=== PATIENT | female | born 1975 | race Two or more races ===

== ENCOUNTER 2024-09-18 15:31 | Emergency (ER) | payer MEDICAID ==
[~2024-09-18] VITALS: Ht 177.8 cm; Wt 72.6 kg
[2024-09-18 17:04] VITALS: BP 120/74; O2SAT 99
== END 2024-09-18 17:08 | disposition home or self-care (01) ==
LOC: ER 15:31
DX: R18.8 Other ascites (principal); C56.9 Malignant neoplasm of unspecified ovary
CPT/HCPCS: 76705; A4606; A4663